=== PATIENT | female | born 1975 | race Caucasian/White ===

== ENCOUNTER 2020-06-28 14:37 | Emergency (ER) | payer BC ==
[2020-06-28 15:01] VITALS: BP 153/89; PULSE 93; TEMP 97; BMI 37.1
== END 2020-06-28 16:29 | disposition home or self-care (01) ==
LOC: JER 14:37
DX: Z11.59 Encounter for screening for other viral diseases (principal)
CPT/HCPCS: 71046-TC-FY; Q3014-GT